=== PATIENT | female | born 1995 | race African-American/Black ===

== ENCOUNTER 2019-09-09 18:21 | Emergency (ER) | payer MEDICAID, OTHER ==
[~2019-09-09] VITALS: Ht 162.6 cm; Wt 56.0 kg
[~2019-09-09 18:21] MED LIST: ONDA4TAB5; PNV1TABL55
[2019-09-09] MEDS ORDERED: VISCOUS LIDOCAINE 2% 15 ML UDC PO STA (18:55)
[2019-09-09] MEDS ORDERED: MAGNESIUM/ALUMINUM HYDROXIDE/SIMETHICONE 30ML UDC PO STA (18:55)
[2019-09-09] MEDS ORDERED: ONDANSETRON HCL 4MG/2ML INJ IV STA (18:55)
[2019-09-09] MEDS ORDERED: SODIUM CHLORIDE 0.9% 1,000 ML IV ONE (18:55)
[2019-09-09] MEDS ORDERED: KETOROLAC 30MG/ML VIAL IV STA (18:55)
[2019-09-09] MEDS ORDERED: FAMOTIDINE 20MG/2ML VIAL IV STA (18:55)
[2019-09-09 19:58] LABS: CHLORIDE 100 mEq/L (98-107)
[2019-09-09 19:59] LABS: INR 1.1; PROTHROMBIN TIME 11.4 sec (9.6-11.0)
[2019-09-09 20:00] LABS: BASOPHILS % 0.5 % (0.0-2.0); HEMATOCRIT. 40.4 % (36.0-48.0); HEMOGLOBIN. 13.4 g/dL (12.0-16.0); LYMPHOCYTES % 7.7 % (20.0-50.0); MEAN CORPUSCULAR HEMOGLOBIN 28.1 pg (28.0-32.0); MEAN CORPUSCULAR VOLUME 84.4 fL (81.0-99.0); MONOCYTES % 3.6 % (2.0-8.0); NEUTROPHILS % 88.2 % (40.0-76.0); PLATELET 311 x1000/uL (130-400); RED BLOOD CELL COUNT 4.79 mill/uL (4.2-5.4)
[2019-09-09 20:02] LABS: ETHANOL BLOOD < 10 mg/dL
[2019-09-09 20:05] LABS: HCG SCREEN NEGATIVE
[2019-09-09] MEDS ORDERED: MORPHINE SULFATE 4 MG/ML CPJ (NOT FOR IM USE) IV ONE (22:00)
[2019-09-09 22:02] VITALS: BP 108/63
[2019-09-09] MEDS ORDERED: LORAZEPAM 2MG/ML CPJ IV ONE (22:15)
== END 2019-09-10 01:04 | disposition home or self-care (01) ==
LOC: ER 18:21
DX: K29.70 Gastritis, unspecified, without bleeding (principal); K21.9 Gastro-esophageal reflux disease without esophagitis; Z98.890 Other specified postprocedural states
CPT/HCPCS: 36415; 76700; 80053; 80320; 83690; 84484; 84703; 85025; 85610; 96361; 96374; 96375; 99284; J1885; J2060; J2270; J2405; J3490; J7030; G0480

== ENCOUNTER 2020-07-04 09:05 | Emergency (ER) | payer OTHER ==
[~2020-07-04] VITALS: Ht 162.6 cm; Wt 54.0 kg
[2020-07-04 09:50] LABS: CLARITY URINE CLOUDY (CLEAR); COLOR URINE YELLOW (YELLOW); KETONES URINE 1+ (NEGATIVE); LEUKOCYTE ESTERASE URINE 2+ (NEGATIVE); NITRITE URINE NEGATIVE (NEGATIVE); OCCULT BLOOD URINE 1+ (NEGATIVE); PH URINE 5.5 (4.5-8.0); PROTEIN URINE 1+ (NEGATIVE); SPECIFIC GRAVITY URINE 1.028 (1.005-1.030)
[2020-07-04] MEDS ORDERED: FAMOTIDINE 20MG/2ML VIAL IV STA (09:52)
[2020-07-04] MEDS ORDERED: MAGNESIUM/ALUMINUM HYDROXIDE/SIMETHICONE 30ML UDC PO STA (09:52)
[2020-07-04] MEDS ORDERED: ONDANSETRON HCL 4MG/2ML INJ IV STA (09:52)
[2020-07-04] MEDS ORDERED: SODIUM CHLORIDE 0.9% 1,000 ML IV ONE ×2 (10:00→11:30)
[2020-07-04] MEDS ORDERED: KETOROLAC 15MG/ML VIAL IV ONE ×2 (10:00→12:00)
[2020-07-04 10:39] LABS: *BENZODIAZEPINES SCREEN URINE NEGATIVE (NEGATIVE); *COCAINE SCREEN URINE NEGATIVE (NEGATIVE); METHADONE URINE SCREEN NEGATIVE (NEGATIVE); OPIATES URINE SCREEN NEGATIVE (NEGATIVE); PHENCYCLIDINE URINE SCREEN NEGATIVE (NEGATIVE)
[2020-07-04 10:40] LABS: *AMPHETAMINES SCREEN URINE NEGATIVE (NEGATIVE); *BARBITURATES SCREEN URINE NEGATIVE (NEGATIVE)
[2020-07-04 10:42] LABS: CANNABINOID URINE SCREEN PRESUMTIVE POSITIVE (NEGATIVE)
[2020-07-04 11:17] LABS: BASOPHILS % 0.2 % (0.0-2.0); EOSINOPHILS % 0.1 % (0.0-5.0); HEMATOCRIT. 39.3 % (36.0-48.0); HEMOGLOBIN. 13.1 g/dL (12.0-16.0); LYMPHOCYTES % 12.8 % (20.0-50.0); MEAN CORPUSCULAR HEMOGLOBIN 29.1 pg (28.0-32.0); MEAN CORPUSCULAR VOLUME 87.4 fL (81.0-99.0); MEAN PLATELET VOLUME 9.1 fl (7.4-10.4); MONOCYTES % 7.8 % (2.0-8.0); NEUTROPHILS % 79.1 % (40.0-76.0); PLATELET 228 x1000/uL (130-400); RED CELL DISTRIBUTION WIDTH 15.9 % (11.6-14.6)
[2020-07-04 11:23] LABS: CHLORIDE 106 mEq/L (98-107)
[2020-07-04] MEDS ORDERED: METRONIDAZOLE 500MG TABLET PO NR (11:30)
[2020-07-04 11:39] LABS: HCG SCREEN NEGATIVE
[2020-07-04] MEDS ORDERED: DICYCLOMINE HCL 10MG CAPSULE PO ONE (12:00)
[2020-07-04] MEDS ORDERED: ACETAMINOPHEN 325MG TABLET PO ONE (12:00)
[2020-07-04 12:24] VITALS: BP 122/82
[2020-07-04] MEDS ORDERED: DICYCLOMINE HCL 10MG/ML 2ML AMP IM NR (12:30)
[2020-07-04] MEDS ORDERED: METRONIDAZOLE 500 MG PREMIX 100 ML IV ONE ×2 (12:30)
[2020-07-04] MEDS ORDERED: METRONIDAZOLE 500MG TABLET PO ONE (12:45)
[2020-07-04] MEDS ORDERED: CEFTRIAXONE SODIUM 500 MG/VIAL IM ONE (13:00)
[2020-07-04] MEDS ORDERED: AZITHROMYCIN 500 MG TABLET PO SCH (13:00)
[2020-07-04] MEDS ORDERED: LIDOCAINE HCL 1% 20ML VIAL (Pyxis) INJ INFIL ONE (13:00)
[2020-07-04] MEDS ORDERED: ONDA4TAB5 MT (13:30)
[2020-07-04] MEDS ORDERED: IBUP-2028 MT (13:30)
[2020-07-04] MEDS ORDERED: ONDANSETRON HCL 4MG/2ML INJ IV ONE (13:45)
== END 2020-07-04 15:34 | disposition home or self-care (01) ==
LOC: ER 09:10
DX: A59.09 Other urogenital trichomoniasis (principal); N39.0 Urinary tract infection, site not specified; B96.20 Unspecified Escherichia coli [E. coli] as the cause of diseases classified elsewhere; D17.71 Benign lipomatous neoplasm of kidney; G40.909 Epilepsy, unspecified, not intractable, without status epilepticus; F12.90 Cannabis use, unspecified, uncomplicated
CPT/HCPCS: 36415; 76700; 76830; 76856; 80053; 80305; 81003; 81025; 83690; 84703; 85025; 87077; 87086; 87186; 87591; 93005; 96361; 96374; 96375; 96376; 99285; J0500; J0696; J1885; J2405; J3490; J7030; Z7610

== ENCOUNTER 2020-12-26 11:22 | Emergency (ER) | payer OTHER, MEDICAID ==
[~2020-12-26] VITALS: Ht 160 cm; Wt 57.0 kg
[~2020-12-26 11:22] MED LIST changes: +IBUP-2028 MT; +ONDA4TAB5 MT
[2020-12-26] MEDS ORDERED: METOCLOPRAMIDE HCL 10MG/2ML VIAL IV ONE (11:45)
[2020-12-26] MEDS ORDERED: ACETAMINOPHEN 325MG TABLET PO ONE (11:45)
[2020-12-26] MEDS ORDERED: SODIUM CHLORIDE 0.9% 1,000 ML IV ONE (11:45)
[2020-12-26 12:01] LABS: BASOPHILS % 0.2 % (0.0-2.0); EOSINOPHILS % 0.5 % (0.0-5.0); HEMATOCRIT. 31.9 % (36.0-48.0); HEMOGLOBIN. 10.8 g/dL (12.0-16.0); LYMPHOCYTES % 17.8 % (20.0-50.0); MEAN CORPUSCULAR HEMOGLOBIN 28.3 pg (28.0-32.0); MEAN CORPUSCULAR VOLUME 83.5 fL (81.0-99.0); MEAN PLATELET VOLUME 8.1 fl (7.4-10.4); NEUTROPHILS % 73.5 % (40.0-76.0); PLATELET 322 x1000/uL (130-400); RED BLOOD CELL COUNT 3.82 mill/uL (4.2-5.4); RED CELL DISTRIBUTION WIDTH 16.6 % (11.6-14.6)
[2020-12-26 12:11] LABS: CHLORIDE 102 mEq/L (98-107)
[2020-12-26 12:33] LABS: B-HCG QUANTITATIVE 10274 mIU/mL (<3)
[2020-12-26] MEDS ORDERED: POTASSIUM CHLORIDE 20MEQ TABLET SR PO SCH (14:00)
[2020-12-26] MEDS ORDERED: METO-293 MT (16:09)
[2020-12-26] MEDS ORDERED: ACET-2708 MT (16:09)
[2020-12-26 16:12] LABS: CLARITY URINE CLEAR (CLEAR); COLOR URINE YELLOW (YELLOW); KETONES URINE 2+ (NEGATIVE); LEUKOCYTE ESTERASE URINE 2+ (NEGATIVE); NITRITE URINE NEGATIVE (NEGATIVE); OCCULT BLOOD URINE NEGATIVE (NEGATIVE); PROTEIN URINE TRACE (NEGATIVE); SPECIFIC GRAVITY URINE 1.017 (1.005-1.030)
[2020-12-26] MEDS ORDERED: CEPH500C2 MT (16:16)
[2020-12-26 16:28] VITALS: BP 113/69
[2020-12-26] MEDS ORDERED: CEPHALEXIN 250MG CAPSULE PO NR (16:30)
== END 2020-12-26 17:10 | disposition home or self-care (01) ==
LOC: ER 11:22
DX: O23.42 Unspecified infection of urinary tract in pregnancy, second trimester (principal); O99.282 Endocrine, nutritional and metabolic diseases complicating pregnancy, second trimester; E87.6 Hypokalemia; O99.352 Diseases of the nervous system complicating pregnancy, second trimester; G40.909 Epilepsy, unspecified, not intractable, without status epilepticus; Z3A.18 18 weeks gestation of pregnancy
CPT/HCPCS: 36415; 76700; 76805; 80053; 81003; 81025; 84702; 85025; 86850; 86900; 86901; 96361; 96374; 99285; J2765; J7030

== ENCOUNTER 2021-12-10 08:15 | Emergency (ER) | payer MEDICAID ==
[~2021-12-10] VITALS: Ht 162.6 cm; Wt 50.0 kg
[~2021-12-10 08:15] MED LIST changes: +ACET-2708 MT; +CEPH500C2 MT; +METO-293 MT; +PNV11TAB5 PO
[2021-12-10] MEDS ORDERED: ONDANSETRON HCL 4MG/2ML INJ IV ONE (08:45)
[2021-12-10] MEDS ORDERED: SODIUM CHLORIDE 0.9% 1,000 ML IV ONE ×2 (08:45→12:30)
[2021-12-10 09:33] LABS: BASOPHILS % 0.4 % (0.0-2.0); HEMATOCRIT. 38.1 % (36.0-48.0); HEMOGLOBIN. 12.5 g/dL (12.0-16.0); LYMPHOCYTES % 23.6 % (20.0-50.0); MEAN CORPUSCULAR HEMOGLOBIN 24.7 pg (28.0-32.0); MEAN CORPUSCULAR VOLUME 75.6 fL (81.0-99.0); MEAN PLATELET VOLUME 8.6 fl (7.4-10.4); MONOCYTES % 11.1 % (2.0-8.0); NEUTROPHILS % 64.9 % (40.0-76.0); PLATELET 356 x1000/uL (130-400); RED BLOOD CELL COUNT 5.05 mill/uL (4.2-5.4); RED CELL DISTRIBUTION WIDTH 19.7 % (11.6-14.6)
[2021-12-10 09:41] LABS: CHLORIDE 91 mEq/L (98-107)
[2021-12-10 09:52] LABS: B-HCG QUANTITATIVE < 1 mIU/mL (<3)
[2021-12-10] MEDS ORDERED: KETOROLAC 15MG/ML VIAL IV ONE (10:45)
[2021-12-10] MEDS ORDERED: ONDANSETRON HCL 4MG/2ML INJ IV NR (10:45)
[2021-12-10 11:37] LABS: CLARITY URINE CLEAR (CLEAR); COLOR URINE YELLOW (YELLOW); KETONES URINE 2+ (NEGATIVE); LEUKOCYTE ESTERASE URINE 1+ (NEGATIVE); NITRITE URINE NEGATIVE (NEGATIVE); OCCULT BLOOD URINE NEGATIVE (NEGATIVE); PH URINE 5.5 (4.5-8.0); PROTEIN URINE TRACE (NEGATIVE); SPECIFIC GRAVITY URINE 1.024 (1.005-1.030)
[2021-12-10 12:19] LABS: *AMPHETAMINES SCREEN URINE NEGATIVE (NEGATIVE); *BARBITURATES SCREEN URINE NEGATIVE (NEGATIVE); *BENZODIAZEPINES SCREEN URINE NEGATIVE (NEGATIVE); *COCAINE SCREEN URINE NEGATIVE (NEGATIVE); METHADONE URINE SCREEN NEGATIVE (NEGATIVE); OPIATES URINE SCREEN NEGATIVE (NEGATIVE); PHENCYCLIDINE URINE SCREEN NEGATIVE (NEGATIVE)
[2021-12-10] MEDS ORDERED: ACETAMINOPHEN 325MG TABLET PO ONE (12:30)
[2021-12-10] MEDS ORDERED: METOCLOPRAMIDE HCL 10MG/2ML VIAL IV ONE (12:30)
[2021-12-10 12:34] LABS: CANNABINOID URINE SCREEN PRESUMTIVE POSITIVE (NEGATIVE)
[2021-12-10] MEDS ORDERED: ONDA4TAB11 PO (14:27)
[2021-12-10 15:00] VITALS: BP 120/82
== END 2021-12-10 15:50 | disposition home or self-care (01) ==
LOC: ER 08:15
DX: R10.84 Generalized abdominal pain (principal); R11.2 Nausea with vomiting, unspecified; E87.6 Hypokalemia
CPT/HCPCS: 36415; 80053; 80305; 81003; 83690; 84702; 85025; 86850; 86900; 86901; 96361; 96374; 96375; 99285; J1885; J2405; J2765; J7030

== ENCOUNTER 2022-06-20 13:39 | Emergency (ER) | payer MEDICAID ==
[~2022-06-20] VITALS: Ht 162.6 cm; Wt 48.0 kg
[~2022-06-20 13:39] MED LIST changes: +ONDA4TAB11 PO
[2022-06-20 13:48] VITALS: BP 103/73
[2022-06-20] MEDS ORDERED: ACETAMINOPHEN 325MG TABLET PO ONE (17:15)
[2022-06-20] MEDS ORDERED: IBUPROFEN 400MG TABLET PO ONE (17:15)
[2022-06-20] MEDS ORDERED: METOCLOPRAMIDE HCL 10MG/2ML VIAL IV ONE (18:30)
[2022-06-20] MEDS ORDERED: KETOROLAC 15MG/ML VIAL IV ONE (18:30)
[2022-06-20 19:07] LABS: CLARITY URINE CLEAR (CLEAR); COLOR URINE YELLOW (YELLOW); KETONES URINE 2+ (NEGATIVE); LEUKOCYTE ESTERASE URINE 2+ (NEGATIVE); NITRITE URINE NEGATIVE (NEGATIVE); OCCULT BLOOD URINE NEGATIVE (NEGATIVE); PROTEIN URINE 1+ (NEGATIVE); SPECIFIC GRAVITY URINE 1.022 (1.005-1.030)
[2022-06-20 19:16] LABS: BASOPHILS % 0.5 % (0.0-2.0); EOSINOPHILS % 0.3 % (0.0-5.0); HEMATOCRIT. 41.7 % (36.0-48.0); HEMOGLOBIN. 13.2 g/dL (12.0-16.0); MEAN CORPUSCULAR HEMOGLOBIN 25.5 pg (28.0-32.0); MEAN CORPUSCULAR VOLUME 80.5 fL (81.0-99.0); MEAN PLATELET VOLUME 8.7 fl (7.4-10.4); MONOCYTES % 4.4 % (2.0-8.0); NEUTROPHILS % 72.8 % (40.0-76.0); PLATELET 275 x1000/uL (130-400); RED BLOOD CELL COUNT 5.18 mill/uL (4.2-5.4); RED CELL DISTRIBUTION WIDTH 19.8 % (11.6-14.6)
[2022-06-20 19:19] LABS: *AMPHETAMINES SCREEN URINE NEGATIVE (NEGATIVE); *BARBITURATES SCREEN URINE NEGATIVE (NEGATIVE); *BENZODIAZEPINES SCREEN URINE NEGATIVE (NEGATIVE); *COCAINE SCREEN URINE NEGATIVE (NEGATIVE); METHADONE URINE SCREEN NEGATIVE (NEGATIVE); OPIATES URINE SCREEN NEGATIVE (NEGATIVE); PHENCYCLIDINE URINE SCREEN NEGATIVE (NEGATIVE)
[2022-06-20 19:40] LABS: HCG SCREEN NEGATIVE
[2022-06-20 19:45] LABS: CHLORIDE 109 mEq/L (98-107)
[2022-06-20 19:48] LABS: CANNABINOID URINE SCREEN PRESUMTIVE POSITIVE (NEGATIVE)
== END 2022-06-20 19:35 | disposition left against medical advice (07) ==
LOC: ER 13:39
DX: R10.84 Generalized abdominal pain (principal); R51.9 Headache, unspecified; Z20.822 Contact with and (suspected) exposure to COVID-19
CPT/HCPCS: 36415; 80053; 80305; 81003; 81025; 83690; 84703; 85025; 87426; 87804; 96374; 96375; 99284; C9803; J1885; J2765

== ENCOUNTER 2023-05-14 13:55 | Emergency (ER) | payer MEDICAID ==
[~2023-05-14] VITALS: Ht 162.6 cm; Wt 50.0 kg
[2023-05-14 14:02] VITALS: TEMP 98.4; O2SAT 100
[2023-05-14] MEDS ORDERED: KETOROLAC 30MG/ML VIAL IV STA (15:29)
[2023-05-14] MEDS ORDERED: METOCLOPRAMIDE HCL 10MG/2ML VIAL IV ONE (15:30)
[2023-05-14] MEDS ORDERED: FAMOTIDINE 20MG/2ML VIAL IV ONE (15:30)
[2023-05-14] MEDS ORDERED: SODIUM CHLORIDE 0.9% 1,000 ML IV ONE (15:30)
[2023-05-14 15:35] LABS: BASOPHILS % 0.3 % (0.0-2.0); HEMOGLOBIN. 14.9 g/dL (12.0-16.0); MEAN CORPUSCULAR HEMOGLOBIN 31.1 pg (28.0-32.0); MEAN CORPUSCULAR HGB CONC 33.9 g/dL (31.0-37.0); MEAN CORPUSCULAR VOLUME 91.8 fL (81.0-99.0); MEAN PLATELET VOLUME 9.1 fl (7.4-10.4); MONOCYTES % 7.9 % (2.0-8.0); NEUTROPHILS % 74.8 % (40.0-76.0); PLATELET 270 x1000/uL (130-400); RED BLOOD CELL COUNT 4.79 mill/uL (4.2-5.4); RED CELL DISTRIBUTION WIDTH 12.9 % (11.6-14.6); WHITE BLOOD COUNT 9.8 x1000/uL (4.5-11.0)
[2023-05-14 16:04] LABS: ALANINE AMINOTRANSFERASE 16 IU/L (10-49); ALBUMIN 4.9 g/dL (3.2-4.8); ASPARTATE AMINOTRANSFERASE 36 IU/L (<34); BILIRUBIN TOTAL 1.7 mg/dL (0.1-1.0); CALCIUM 10.2 mg/dL (8.7-10.4); CARBON DIOXIDE 28 mEq/L (21-32); CHLORIDE 96 mEq/L (98-107); CREATININE 0.9 mg/dL (0.6-1.0); GLUCOSE 84 mg/dL (70-105); POTASSIUM 3.3 mEq/L (3.5-5.1); PROTEIN TOTAL 8.2 g/dL (6.0-8.3); SODIUM 135 mEq/L (136-145); UREA NITROGEN BLOOD 13 mg/dL (9-23)
[2023-05-14 16:37] LABS: ETHANOL BLOOD < 10 mg/dL (<10)
[2023-05-14] MEDS ORDERED: KETOROLAC 30MG/ML VIAL IV NR (19:00)
[2023-05-14] MEDS ORDERED: METOCLOPRAMIDE HCL 10MG/2ML VIAL IV NR (19:00)
[2023-05-14] MEDS ORDERED: FAMOTIDINE 20MG/2ML VIAL IV NR (19:00)
[2023-05-14 19:01] VITALS: BP 98/77; PULSE 111; RESP 16
== END 2023-05-14 20:58 | disposition left against medical advice (07) ==
LOC: ER 13:55
DX: R10.10 Upper abdominal pain, unspecified (principal); R11.2 Nausea with vomiting, unspecified; F12.10 Cannabis abuse, uncomplicated; Z79.899 Other long term (current) drug therapy
CPT/HCPCS: 80053; 81025; 80320; 83690; 85025; 36415; 96361; 96374; 96375; 99284; J3490; J1885; J2765; J7030; Z7610 ×2; G0480